=== PATIENT | female | born 1960 | race Caucasian/White ===

== ENCOUNTER 2019-07-08 12:55 | Emergency (ER) | payer OTHER, SELFPAY ==
[2019-07-08 12:56] VITALS: BP 131/90; PULSE 112; RESP 16; O2SAT 96
[2019-07-08 12:57] VITALS: BP 122/83; PULSE 107; RESP 16; TEMP 37.3; O2SAT 96; BMI 42.2
[2019-07-08 13:03] VITALS: O2SAT 97
--- NOTE | 2019-07-08 13:13 | RAD_ITS ---
STUDY: X-RAY - LEFT WRIST REASON FOR EXAM: Female, 58 years old. FALL, PAIN TECHNIQUE: 3 view(s) of the wrist were obtained. COMPARISON: None. FINDINGS: There is demineralization of the radius and ulna. There is degenerative arthrosis of the radiocarpal articulation. Normal distal radioulnar articulation. There is a lucency and osseous body along the posterior aspect of the proximal carpal row concerning for possible triquetral carpal fracture. Normal carpal articulations. There is degenerative arthrosis of the carpometacarpal articulation of the thumb. Normal second through fifth carpometacarpal articulations. There is demineralization of the metacarpal bones. The soft tissue structures are unremarkable. RAD/Wrist min 3 Views IMPRESSION: Findings concerning for possible triquetral posterior carpal fracture on lateral projection, clinically correlate for site of pain. Electronically Signed: Son Jeffers DO at 14:19 EDT , Service support ,
--- NOTE | 2019-07-08 13:13 | RAD_ITS ---
STUDY: X-RAY - RIGHT WRIST REASON FOR EXAM: Female, 58 years old. FALL, PAINFUL WRIST TECHNIQUE: 3 view(s) of the wrist were obtained. COMPARISON: None. FINDINGS: There is a comminuted fracture of the distal radius with ventral angulation and fracture fragments. There is a transverse fracture of the ulnar styloid with mild displacement. There is degenerative arthrosis of the radiocarpal articulation. Normal distal radioulnar articulation. Normal carpal bones. Normal carpal articulations. There is degenerative arthrosis of the carpometacarpal articulation of the thumb. Normal second through fifth carpometacarpal articulations. Normal visualized metacarpal bones. The soft tissue structures are unremarkable. RAD/Wrist min 3 Views IMPRESSION: Comminuted distal radial fracture and transverse fracture of the ulnar styloid as above. Electronically Signed: Son Jeffers DO at 14:21 EDT , Service support ,
--- NOTE | 2019-07-08 13:13 | RAD_ITS ---
STUDY: X-RAY - LEFT SHOULDER REASON FOR EXAM: Female, 58 years old. FALL, PAIN TECHNIQUE: 3 view(s) of the shoulder. COMPARISON: None. FINDINGS: There is mild degenerative arthrosis of the glenohumeral articulation. There is degenerative arthrosis of the acromioclavicular joint without inferior osseous spur formation. Normal acromion. There is demineralization of the humerus and visualized osseous structures. The soft tissue structures are unremarkable. Normal visualized pulmonary apex. RAD/Shoulder min 2 Views IMPRESSION: Degenerative changes above with no evidence of acute fracture or dislocation. Electronically Signed: Son Jeffers DO at 14:20 EDT , Service support ,
[2019-07-08] MEDS: fentaNYL 100 MCG/2 ML Ampul 50 MCG IM (13:29)
[2019-07-08] MEDS: HYDROmorphone 1 MG/ML Syringe IM (15:11)
--- NOTE | 2019-07-08 16:04 | ED.DCSUM_ITS ---
- ER Visit Summary Date of Service: 07/08/19 Chief Complaint: Fall History of Present Illness: The patient is a 58 F who reports that she tripped over a garden hose in parking lot and fell injuring her face. She denies loss of consciousness. She not on anticoagulants. She denies any loose teeth. Her tetanus is up-to-date. Patient reports that she has left shoulder pain that is 3 out of 10 in severity, left wrist pain is 3 out of 10 in severity, and right wrist pain is 8 out of 10 in severity. She denies any paresthesias. She is right-hand dominant. Physical Examination: Vitals: Stable. Afebrile. Face: 1 cm laceration that is superficial to her lower lip. This does not cross the vermilion border. There is no active bleeding. There are no loose teeth. No dental malocclusion. Neck: No vertebral tenderness. Full ROM without difficulty. Cleared by NEXUS criteria. Back: No vertebral tenderness. General: A&O x 3. NAD. Cardiovascular exam: Regular rate and rhythm, no murmur, rub or gallop. Respiratory exam: Chest nontender. No crepitus. Clear to auscultation bila terally. No wheezes or stridor. Abdominal exam: Soft, nontender, nondistended, normal bowel sounds. No pain in RUQ or LUQ specifically. No peritoneal signs. Extremity: Mild tenderness palpation over the left proximal humerus. Good range of motion with minimal pain. Mild tenderness palpation is diffuse over the left wrist. She is neuro vas intact distal to these. Severe tenderness to palpation over the right distal radius. There is obvious soft tissue swelling deformity here. She is neuro vas intact distal to this.. Test Results: Clinical Impression(s) from Imaging Studies Shoulder X-Ray 07/08/19 13:13 IMPRESSION: Degenerative changes above with no evidence of acute fracture or dislocation. Electronically Signed: Son Jeffers DO at 14:20 EDT , Service support , Wrist X-Ray 07/08/19 13:13 IMPRESSION: Comminuted distal radial fracture and transverse fracture of the ulnar styloid as above. Electronically Signed: Son Jeffers DO at 14:21 EDT , Service support , Wrist X-Ray 07/08/19 13:13 IMPRESSION: Findings concerning for possible triquetral posterior carpal fracture on lateral projection, clinically correlate for site of pain. Electronically Signed: Son Jeffers, at 14:19 EDT , Service support , Emergency Department Course and Treatment: Patient was treated with fentanyl and then Dilaudid IM. She had her right wrist placed in a sugar tong splint. She was discussed with Dr. ольга olivera. He feels it is reasonable to put her in a Velcro wrist splint for the triquetral fracture. She states that she has a Velcro wrist splint at home and does not want one from here. Treatment Plan: Patient is instructed to follow-up with Dr. Waters within 1 week for another exam. To home in improved and stable condition. Disposition: 1. Fall. 2. Comminuted right distal radius fracture. 3. Left triquetral fracture. 4. Ortho-Glass sugar tong splint, fabricated. Impression: [] This note was generated with [employer] dictation software. It may contain incorrect words, spelling, and punctuation that were not noted in review of the chart prior to signing ED Disposition - Plan for ED Patient: Disposition: Home or Assisted Living Instructions: ED Fx Colles Wrist No Redu Requ, ED Fx Hand Closed Prescriptions: Hydrocodone Bitart/Apap 5-325 [[place] 5MG-325MG] 1 tab PO Q6H PRN PRN 5 Days #20 tab PRN Reason: Pain Prescription Printed Referrals: Pa Waters MD [STAFF PHYSICIAN] - 5-7 Days
[2019-07-08 16:47] VITALS: BP 137/96; PULSE 100; RESP 16; O2SAT 95
--- NOTE | 2019-07-08 16:47 | ED.RN ---
REVIEWED D/C INSTRUCTIONS, FOLLOW UP CARE, PRESCRIPTION, AND S/S THAT WOULD WARRANT A RETURN TO THE ED WITH PT. PT VERBALIZED AN UNDERSTANDING AND DENIES FURTHER QUESTIONS FOR THIS RN. PT SKIN P/W/D, RESP EVEN AND UNLABORED, PT A&O X 3, NO DISTRESS NOTED. PT AMBULATED OUT OF ED, GAIT STEADY.
== END 2019-07-08 16:48 | disposition home or self-care (01) ==
LOC: ED 13:52
PROVIDERS: Emergency Provider Emergency Medicine; PCP Family Medicine
DX: S52.91XA Unspecified fracture of right forearm, initial encounter for closed fracture (principal); S62.112A Displaced fracture of triquetrum [cuneiform] bone, left wrist, initial encounter for closed fracture; F17.200 Nicotine dependence, unspecified, uncomplicated; W01.0XXA Fall on same level from slipping, tripping and stumbling without subsequent striking against object, initial encounter
CPT/HCPCS: 29125; 73030; 73110; 96372; 99284